=== PATIENT | male | born 1955 | race Caucasian/White ===

== ENCOUNTER 2023-04-22 13:26 | Inpatient (IN) | payer OTHER, MEDICARE ==
[~2023-04-22] VITALS: Ht 179.1 cm; Wt 78.9 kg
[2023-04-22 13:59] LABS: BASOPHILS % (AUTO) 0.7 % (0.0-2.0); EOSINOPHILS # (AUTO) 0.1 K/uL (0.0-0.7); HEMATOCRIT 39.2 % (36.7-47.1); HEMOGLOBIN 13.2 g/dL (12.5-16.3); LYMPHOCYTES # (AUTO) 0.4 K/uL (0.8-4.8); LYMPHOCYTES % (AUTO) 6.5 % (20.5-51.5); MEAN CORPUSCULAR HEMOGLOBIN 32.1 uug (23.8-33.4); MEAN CORPUSCULAR HGB CONC 34 g/dL (32.5-36.3); MEAN CORPUSCULAR VOLUME 95.4 fL (73.0-96.2); MONOCYTES # (AUTO) 0.7 K/uL (0.1-1.30); NEUTROPHILS # (AUTO) 4.3 K/uL (1.8-8.9); NEUTROPHILS % (AUTO) 78.8 % (38.5-71.5); PLATELET COUNT (AUTO) 147 K/uL (152-348); RED BLOOD CELL COUNT(AUTO) 4.11 MIL/uL (4.06-5.63); RED CELL DISTRIBUTION WIDTH 15.9 % (12.1-16.2); WHITE BLOOD COUNT (AUTO) 5.5 K/uL (3.6-10.2)
[2023-04-22 14:08] LABS: DIFFERENTIAL COMMENT 1
[2023-04-22] MEDS ORDERED: DILTIAZEM HCL 25 MG IV IV ONE (14:30)
[2023-04-22] MEDS ORDERED: DILTIAZEM HCL 50 MG IV ONE (14:41)
[2023-04-22] MEDS ORDERED: DILTIAZEM HCL IV 125 MG in IV NORMAL SALINE 100 ML IV PRN (16:15)
[2023-04-22 16:32] LABS: ALBUMIN 3.4 g/dL (3.4-5.0); BILIRUBIN,TOTAL 0.5 mg/dL (0.2-1.0); POTASSIUM 4.9 mmol/L (3.5-5.1); TOTAL PROTEIN, SERUM 6.9 g/dL (6.4-8.2)
[2023-04-22 16:44] LABS: CREATININE 7.9 mg/dL (0.6-1.3)
[2023-04-22 16:56] LABS: CALCIUM 8.8 mg/dL (8.5-10.1)
[2023-04-22] MEDS ORDERED: AMIODARONE HCL IV 150 MG in IV DEXTROSE 5% 100 ML IV ONE (18:30)
[2023-04-22] MEDS: AMIODARONE HCL IV 450 MG in IV DEXTROSE 5% 250 ML IV PRN (19:23)
[2023-04-22] MEDS ORDERED: MORPHINE SULFATE 2 MG/1 ML DISP.SYRIN IV PRN (22:15)
[2023-04-22] MEDS ORDERED: ZOLPIDEM 5 MG TABLET PO PRN (22:15)
[2023-04-22] MEDS ORDERED: MAGNESIUM HYDROXIDE 30 ML LIQUID UDC PO PRN (22:15)
[2023-04-22] MEDS ORDERED: ONDANSETRON 4 MG/2 ML VIAL IV PRN (22:15)
[2023-04-22] MEDS ORDERED: HYDROCODONE/APAP 5-325MG TABLET PO PRN (22:15)
[2023-04-22] MEDS ORDERED: REMEDY ESSENTIAL ZINC PASTE 113 GM TP PRN (22:15)
[2023-04-22 23:15] VITALS: BP 142/105; TEMP 98.3; O2SAT 97
[2023-04-22] MEDS ORDERED: AMIODARONE HCL 150 MG/3 ML VIAL IV ONE (23:42)
[2023-04-23] VITALS (30 sets, daily range): BP systolic 116–161; BP diastolic 81–104; TEMP 98–99.5; O2SAT 91–98
[2023-04-23] MEDS: ACETAMINOPHEN 325 MG TABLET PO PRN ×2 (00:25→18:45)
[2023-04-23] MEDS: AMIODARONE HCL IV 450 MG in IV DEXTROSE 5% 250 ML IV PRN ×2 (01:18→14:15)
[2023-04-23 05:25] LABS: BASOPHILS % (AUTO) 1.2 % (0.0-2.0); HEMATOCRIT 35.8 % (36.7-47.1); HEMOGLOBIN 12.3 g/dL (12.5-16.3); LYMPHOCYTES # (AUTO) 0.5 K/uL (0.8-4.8); LYMPHOCYTES % (AUTO) 12.6 % (20.5-51.5); MEAN CORPUSCULAR HEMOGLOBIN 32.2 uug (23.8-33.4); MEAN CORPUSCULAR HGB CONC 34 g/dL (32.5-36.3); MONOCYTES # (AUTO) 0.4 K/uL (0.1-1.30); MONOCYTES % (AUTO) 10.1 % (0.0-11.0); NEUTROPHILS # (AUTO) 3.1 K/uL (1.8-8.9); NEUTROPHILS % (AUTO) 75.1 % (38.5-71.5); PLATELET COUNT (AUTO) 131 K/uL (152-348); RED BLOOD CELL COUNT(AUTO) 3.81 MIL/uL (4.06-5.63); RED CELL DISTRIBUTION WIDTH 15.7 % (12.1-16.2); WHITE BLOOD COUNT (AUTO) 4.1 K/uL (3.6-10.2)
[2023-04-23 05:39] LABS: DIFFERENTIAL COMMENT 1
[2023-04-23 05:54] LABS: CALCIUM 9.1 mg/dL (8.5-10.1); MAGNESIUM 2.7 mg/dL (1.8-2.4); PHOSPHOROUS 3.8 mg/dL (2.5-4.9); POTASSIUM 4.6 mmol/L (3.5-5.1)
[2023-04-23 06:02] LABS: CREATININE 9.3 mg/dL (0.6-1.3)
[2023-04-23 06:09] LABS: THYROID STIMULATING HORMONE 3.834 mIU/mL (0.358-3.740)
[2023-04-23] MEDS: PANTOPRAZOLE SODIUM 40 MG TABLET.DR PO SCH (06:15)
[2023-04-23] MEDS ORDERED: ACET325T53 PO (10:29)
[2023-04-23] MEDS ORDERED: FLUT1DIS28 IH (10:30)
[2023-04-23] MEDS ORDERED: CALC-494 PO (10:31)
[2023-04-23] MEDS ORDERED: DILT-32 PO (10:31)
[2023-04-23] MEDS ORDERED: DOCU100C36 PO (10:32)
[2023-04-23] MEDS ORDERED: FERR-68 PO (10:34)
[2023-04-23] MEDS ORDERED: HYDR-4077 PO (10:34)
[2023-04-23] MEDS ORDERED: APIX5TAB PO (10:34)
[2023-04-23] MEDS ORDERED: SODI10PO PO (10:37)
[2023-04-23] MEDS ORDERED: MIDO10TA PO ×2 (10:38→10:39)
[2023-04-23] MEDS ORDERED: PANT40TA2 PO (10:43)
[2023-04-23] MEDS ORDERED: VIT1TABL46 PO (10:43)
[2023-04-23] MEDS ORDERED: CALC0.258 PO (10:43)
[2023-04-23] MEDS ORDERED: OLAN15TA3 PO (10:43)
[2023-04-23] MEDS ORDERED: SEVE800T8 PO (10:43)
[2023-04-23] MEDS ORDERED: SIMV10TA98 PO (10:43)
[2023-04-23] MEDS ORDERED: SODI650T PO (10:46)
[2023-04-23] MEDS ORDERED: SUCR1TAB PO (10:47)
[2023-04-23] MEDS ORDERED: ALBU18HF2 IH (10:52)
[2023-04-23] MEDS ORDERED: ONDA4TAB5 PO (10:52)
[2023-04-23] MEDS ORDERED: CHOLECALCIFEROL PO (10:52)
[2023-04-23] MEDS ORDERED: ZINC220C6 PO (10:52)
[2023-04-23] MEDS ORDERED: ONDANSETRON HCL 4 MG TABLET PO PRN (11:00)
[2023-04-23] MEDS ORDERED: MIDODRINE HCL 5 MG TABLET PO PRN (11:00)
[2023-04-23] MEDS ORDERED: ALBUTEROL SULFATE 8 GM HFA.AER.AD IH PRN (11:00)
[2023-04-23] MEDS ORDERED: CALCIUM CARBONATE 500 MG TAB.CHEW PO PRN (11:00)
[2023-04-23] MEDS: hydrALAZINE HCL 50 MG TABLET PO PRN (12:22)
[2023-04-23] MEDS: MIDODRINE HCL 5 MG TABLET PO SCH ×2 (12:24→17:00)
[2023-04-23] MEDS: SEVELAMER CARBONATE 800 MG TABLET PO SCH ×2 (12:42→18:40)
[2023-04-23] MEDS: SODIUM BICARBONATE 650 MG TABLET PO SCH ×2 (12:43→18:41)
[2023-04-23] MEDS ORDERED: FLUTICASONE/SALMETEROL 250/50 INHALER IH SCH (17:00)
[2023-04-23] MEDS: NEPRO (VANILLA) 237 ML CAN PO SCH (17:00)
[2023-04-23] MEDS: DOCUSATE SODIUM 100 MG CAPSULE PO SCH (18:36)
[2023-04-23] MEDS: APIXABAN 5 MG TABLET PO SCH (18:38)
[2023-04-23] MEDS: SIMVASTATIN 10 MG TABLET PO SCH (20:47)
[2023-04-23] MEDS: OLANZAPINE 5 MG TABLET PO SCH (20:47)
[2023-04-24] VITALS (29 sets, daily range): BP systolic 119–188; BP diastolic 52–133; TEMP 98.9–99; O2SAT 93–98
[2023-04-24] MEDS: hydrALAZINE HCL 50 MG TABLET PO PRN ×3 (01:51→23:20)
[2023-04-24] MEDS ORDERED: AMIODARONE HCL 150 MG/3 ML VIAL IV ONE (03:05)
[2023-04-24] MEDS: AMIODARONE HCL IV 450 MG in IV DEXTROSE 5% 250 ML IV PRN (03:15)
[2023-04-24 05:10] LABS: BASOPHILS % (AUTO) 0.1 % (0.0-2.0); EOSINOPHILS % (AUTO) 0.1 % (0.0-7.0); HEMOGLOBIN 13.3 g/dL (12.5-16.3); LYMPHOCYTES # (AUTO) 0.2 K/uL (0.8-4.8); LYMPHOCYTES % (AUTO) 3.4 % (20.5-51.5); MEAN CORPUSCULAR HEMOGLOBIN 32.1 uug (23.8-33.4); MEAN CORPUSCULAR HGB CONC 34 g/dL (32.5-36.3); MEAN CORPUSCULAR VOLUME 94.1 fL (73.0-96.2); MONOCYTES # (AUTO) 0.5 K/uL (0.1-1.30); MONOCYTES % (AUTO) 9.2 % (0.0-11.0); NEUTROPHILS % (AUTO) 87.2 % (38.5-71.5); PLATELET COUNT (AUTO) 125 K/uL (152-348); RED BLOOD CELL COUNT(AUTO) 4.15 MIL/uL (4.06-5.63); RED CELL DISTRIBUTION WIDTH 15.8 % (12.1-16.2); WHITE BLOOD COUNT (AUTO) 5.7 K/uL (3.6-10.2)
[2023-04-24 05:54] LABS: DIFFERENTIAL COMMENT 1
[2023-04-24] MEDS: SUCRALFATE 1 G TABLET PO SCH (06:08)
[2023-04-24] MEDS: PANTOPRAZOLE SODIUM 40 MG TABLET.DR PO SCH (06:09)
[2023-04-24 06:27] LABS: CALCIUM 9.3 mg/dL (8.5-10.1); CREATININE 6.3 mg/dL (0.6-1.3); MAGNESIUM 2.4 mg/dL (1.8-2.4); PHOSPHOROUS 3.4 mg/dL (2.5-4.9); POTASSIUM 4.7 mmol/L (3.5-5.1)
[2023-04-24] MEDS ORDERED: MIDODRINE HCL 5 MG TABLET PO PRN (07:45)
[2023-04-24] MEDS: SODIUM BICARBONATE 650 MG TABLET PO SCH ×3 (08:00→18:00)
[2023-04-24] MEDS: SEVELAMER CARBONATE 800 MG TABLET PO SCH ×3 (08:00→17:05)
[2023-04-24] MEDS ORDERED: DILTIAZEM HCL 25 MG IV IV ONE ×2 (08:45→11:45)
[2023-04-24] MEDS ORDERED: PANTOPRAZOLE SODIUM 40 MG TABLET.DR PO SCH (09:00)
[2023-04-24] MEDS ORDERED: SODIUM ZIRCONIUM CYCLOSILICATE PO SCH (09:00)
[2023-04-24] MEDS ORDERED: DILTIAZEM HCL CD 120 MG CAP.SR.24H PO SCH ×2 (09:00)
[2023-04-24] MEDS: FLUTICASONE/VILANTEROL 1 EACH BLST.W.DEV INH SCH (09:00)
[2023-04-24] MEDS: ZINC SULFATE 220 MG CAPSULE PO SCH (09:02)
[2023-04-24] MEDS: FERROUS SULFATE 325 MG TABEC PO SCH (09:03)
[2023-04-24] MEDS: CHOLECALCIFEROL 1,000 UNIT TABLET PO SCH (09:04)
[2023-04-24] MEDS: CALCIUM CARBONATE 500 MG TAB.CHEW PO PRN (09:04)
[2023-04-24] MEDS: APIXABAN 5 MG TABLET PO SCH ×2 (09:27→17:34)
[2023-04-24] MEDS: DILTIAZEM HCL CD 240 MG CAP.SR.24H PO SCH (09:30)
[2023-04-24] MEDS: CALCITRIOL 0.25 MCG CAPSULE PO SCH (09:30)
[2023-04-24] MEDS: DOCUSATE SODIUM 100 MG CAPSULE PO SCH ×2 (09:30→17:05)
[2023-04-24] MEDS: NEPRO (VANILLA) 237 ML CAN PO SCH ×2 (09:30→17:05)
[2023-04-24] MEDS: FOLIC ACID/VITAMIN B COMP W-C TABLET PO SCH (09:30)
[2023-04-24 15:55] LABS: THYROID STIMULATING HORMONE 2.802 mIU/mL (0.358-3.740)
[2023-04-24] MEDS: SIMVASTATIN 10 MG TABLET PO SCH (20:54)
[2023-04-24] MEDS: OLANZAPINE 5 MG TABLET PO SCH (20:55)
[2023-04-25] VITALS (26 sets, daily range): BP systolic 114–156; BP diastolic 68–104; TEMP 98.1–99.2; O2SAT 91–96
[2023-04-25] MEDS ORDERED: DILTIAZEM HCL 25 MG IV IV ONE (02:30)
[2023-04-25 05:35] LABS: BASOPHILS % (AUTO) 0.4 % (0.0-2.0); HEMATOCRIT 42.4 % (36.7-47.1); LYMPHOCYTES # (AUTO) 0.2 K/uL (0.8-4.8); MEAN CORPUSCULAR HGB CONC 33 g/dL (32.5-36.3); MEAN CORPUSCULAR VOLUME 96.6 fL (73.0-96.2); MONOCYTES # (AUTO) 0.7 K/uL (0.1-1.30); MONOCYTES % (AUTO) 11.5 % (0.0-11.0); NEUTROPHILS % (AUTO) 85.1 % (38.5-71.5); PLATELET COUNT (AUTO) 129 K/uL (152-348); RED BLOOD CELL COUNT(AUTO) 4.39 MIL/uL (4.06-5.63); RED CELL DISTRIBUTION WIDTH 16.1 % (12.1-16.2); WHITE BLOOD COUNT (AUTO) 5.8 K/uL (3.6-10.2)
[2023-04-25 05:41] LABS: DIFFERENTIAL COMMENT 1
[2023-04-25 05:49] LABS: CALCIUM 9.8 mg/dL (8.5-10.1); CREATININE 5.3 mg/dL (0.6-1.3); MAGNESIUM 2.4 mg/dL (1.8-2.4); PHOSPHOROUS 4.1 mg/dL (2.5-4.9)
[2023-04-25] MEDS: PANTOPRAZOLE SODIUM 40 MG TABLET.DR PO SCH (07:43)
[2023-04-25] MEDS: SUCRALFATE 1 G TABLET PO SCH (07:43)
[2023-04-25] MEDS: CALCIUM CARBONATE 500 MG TAB.CHEW PO PRN (08:00)
[2023-04-25] MEDS: SEVELAMER CARBONATE 800 MG TABLET PO SCH ×3 (08:00→17:53)
[2023-04-25] MEDS: DOCUSATE SODIUM 100 MG CAPSULE PO SCH ×2 (08:01→17:55)
[2023-04-25] MEDS: CALCITRIOL 0.25 MCG CAPSULE PO SCH (08:01)
[2023-04-25] MEDS: SODIUM BICARBONATE 650 MG TABLET PO SCH ×3 (08:01→17:54)
[2023-04-25] MEDS: FLUTICASONE/VILANTEROL 1 EACH BLST.W.DEV INH SCH (08:02)
[2023-04-25] MEDS: CHOLECALCIFEROL 1,000 UNIT TABLET PO SCH (08:02)
[2023-04-25] MEDS: ZINC SULFATE 220 MG CAPSULE PO SCH (08:03)
[2023-04-25] MEDS: FOLIC ACID/VITAMIN B COMP W-C TABLET PO SCH (08:04)
[2023-04-25] MEDS: FERROUS SULFATE 325 MG TABEC PO SCH (08:04)
[2023-04-25] MEDS: DILTIAZEM HCL CD 240 MG CAP.SR.24H PO SCH (08:06)
[2023-04-25] MEDS: APIXABAN 5 MG TABLET PO SCH ×2 (08:07→17:56)
[2023-04-25] MEDS: NEPRO (VANILLA) 237 ML CAN PO SCH ×2 (08:08→17:53)
[2023-04-25] MEDS ORDERED: DILTIAZEM HCL CD 120 MG CAP.SR.24H PO ONE (09:00)
[2023-04-25] MEDS: METOPROLOL TARTRATE 50 MG TABLET PO SCH ×2 (09:21→17:57)
[2023-04-25 10:28] LABS: ABG BASE EXCESS -0.9 mmol/L (-2.0-2.0); ABG HCO3 22.8 mmol/L (22.0-26.0); ABG PH 7.432 (7.340-7.440); ABG SITE RIGHT RADIAL; ABG TOTAL HEMOGLOBIN 13.8 G/dL (14.0-18.0); AaDO2 90.3 mmHg; COHb 1.4 % (0.0-3.9); MetHb 0.2 % (0.0-1.5); O2Hb 87.6 % (94.0-97.0)
[2023-04-25] MEDS: ALBUTEROL SULFATE 2.5 MG/3 ML NEBU NEB PRN (10:58)
[2023-04-25] MEDS: methylPREDNISolone SOD SUCC 125 MG/2 ML VIAL IV SCH ×3 (11:12→21:46)
[2023-04-25] MEDS: SIMVASTATIN 10 MG TABLET PO SCH (20:31)
[2023-04-25] MEDS: OLANZAPINE 5 MG TABLET PO SCH (20:31)
[2023-04-26] VITALS (9 sets, daily range): BP systolic 105–142; BP diastolic 55–84; TEMP 98–98.5; O2SAT 90–97
[2023-04-26] MEDS: METOPROLOL TARTRATE 50 MG TABLET PO SCH ×3 (01:13→16:51)
[2023-04-26] MEDS: methylPREDNISolone SOD SUCC 125 MG/2 ML VIAL IV SCH ×3 (05:40→22:31)
[2023-04-26] MEDS: PANTOPRAZOLE SODIUM 40 MG TABLET.DR PO SCH (05:41)
[2023-04-26] MEDS: SUCRALFATE 1 G TABLET PO SCH (05:43)
[2023-04-26 06:40] LABS: BASOPHILS % (AUTO) 0.1 % (0.0-2.0); HEMATOCRIT 36.5 % (36.7-47.1); HEMOGLOBIN 12.3 g/dL (12.5-16.3); LYMPHOCYTES # (AUTO) 0.3 K/uL (0.8-4.8); LYMPHOCYTES % (AUTO) 4.4 % (20.5-51.5); MEAN CORPUSCULAR HEMOGLOBIN 32.2 uug (23.8-33.4); MEAN CORPUSCULAR HGB CONC 34 g/dL (32.5-36.3); MEAN CORPUSCULAR VOLUME 95.2 fL (73.0-96.2); MONOCYTES # (AUTO) 0.5 K/uL (0.1-1.30); MONOCYTES % (AUTO) 9.4 % (0.0-11.0); NEUTROPHILS % (AUTO) 86.1 % (38.5-71.5); PLATELET COUNT (AUTO) 144 K/uL (152-348); RED BLOOD CELL COUNT(AUTO) 3.83 MIL/uL (4.06-5.63); RED CELL DISTRIBUTION WIDTH 16.1 % (12.1-16.2); WHITE BLOOD COUNT (AUTO) 5.8 K/uL (3.6-10.2)
[2023-04-26 06:53] LABS: DIFFERENTIAL COMMENT 1
[2023-04-26] MEDS: SEVELAMER CARBONATE 800 MG TABLET PO SCH ×3 (08:11→16:51)
[2023-04-26 08:14] LABS: POTASSIUM 5.6 mmol/L (3.5-5.1)
[2023-04-26 08:15] LABS: MAGNESIUM 2.8 mg/dL (1.8-2.4); PHOSPHOROUS 4.3 mg/dL (2.5-4.9)
[2023-04-26 08:17] LABS: CREATININE 7.8 mg/dL (0.6-1.3)
[2023-04-26] MEDS: NEPRO (VANILLA) 237 ML CAN PO SCH ×2 (09:00→16:57)
[2023-04-26] MEDS: SODIUM BICARBONATE 650 MG TABLET PO SCH ×3 (09:14→17:04)
[2023-04-26] MEDS: FOLIC ACID/VITAMIN B COMP W-C TABLET PO SCH (09:17)
[2023-04-26] MEDS: APIXABAN 5 MG TABLET PO SCH ×2 (09:17→16:55)
[2023-04-26] MEDS: CHOLECALCIFEROL 1,000 UNIT TABLET PO SCH (09:18)
[2023-04-26] MEDS: FERROUS SULFATE 325 MG TABEC PO SCH (09:19)
[2023-04-26] MEDS: FLUTICASONE/VILANTEROL 1 EACH BLST.W.DEV INH SCH (09:20)
[2023-04-26] MEDS: DILTIAZEM HCL CD 180 MG CAP.SR.24H PO SCH (09:20)
[2023-04-26] MEDS: DOCUSATE SODIUM 100 MG CAPSULE PO SCH ×2 (09:20→16:51)
[2023-04-26] MEDS: ZINC SULFATE 220 MG CAPSULE PO SCH (09:21)
[2023-04-26] MEDS: CALCITRIOL 0.25 MCG CAPSULE PO SCH (09:22)
[2023-04-26] MEDS: ALBUTEROL SULFATE 2.5 MG/3 ML NEBU NEB PRN ×2 (16:19→21:25)
[2023-04-26] MEDS: SIMVASTATIN 10 MG TABLET PO SCH (22:27)
[2023-04-26] MEDS: OLANZAPINE 5 MG TABLET PO SCH (22:27)
[2023-04-26] MEDS: AMMONIUM LACTATE 12% LOTION 225 GM BOTTLE TP SCH (22:31)
[2023-04-27 00:12] VITALS: BP 122/67; TEMP 98.5; O2SAT 90
[2023-04-27] MEDS: METOPROLOL TARTRATE 50 MG TABLET PO SCH ×3 (01:00→18:08)
[2023-04-27 04:30] VITALS: BP 114/57; TEMP 98.6; O2SAT 97
[2023-04-27 06:32] LABS: BASOPHILS % (AUTO) 0.2 % (0.0-2.0); HEMATOCRIT 34.9 % (36.7-47.1); HEMOGLOBIN 11.8 g/dL (12.5-16.3); LYMPHOCYTES # (AUTO) 0.3 K/uL (0.8-4.8); LYMPHOCYTES % (AUTO) 5.2 % (20.5-51.5); MEAN CORPUSCULAR HGB CONC 34 g/dL (32.5-36.3); MONOCYTES # (AUTO) 0.4 K/uL (0.1-1.30); MONOCYTES % (AUTO) 8.4 % (0.0-11.0); NEUTROPHILS # (AUTO) 4.3 K/uL (1.8-8.9); NEUTROPHILS % (AUTO) 86.2 % (38.5-71.5); PLATELET COUNT (AUTO) 164 K/uL (152-348); RED BLOOD CELL COUNT(AUTO) 3.68 MIL/uL (4.06-5.63); RED CELL DISTRIBUTION WIDTH 16.1 % (12.1-16.2)
[2023-04-27 06:53] LABS: CALCIUM 9.6 mg/dL (8.5-10.1); MAGNESIUM 2.9 mg/dL (1.8-2.4); PHOSPHOROUS 4.1 mg/dL (2.5-4.9); POTASSIUM 5.8 mmol/L (3.5-5.1)
[2023-04-27 07:06] LABS: CREATININE 9.5 mg/dL (0.6-1.3)
[2023-04-27] MEDS: methylPREDNISolone SOD SUCC 125 MG/2 ML VIAL IV SCH ×3 (07:06→21:40)
[2023-04-27] MEDS: PANTOPRAZOLE SODIUM 40 MG TABLET.DR PO SCH (07:06)
[2023-04-27] MEDS: SUCRALFATE 1 G TABLET PO SCH (07:07)
[2023-04-27 07:28] LABS: DIFFERENTIAL COMMENT 1
[2023-04-27] MEDS: CALCITRIOL 0.25 MCG CAPSULE PO SCH (08:48)
[2023-04-27] MEDS: SEVELAMER CARBONATE 800 MG TABLET PO SCH ×3 (08:48→18:07)
[2023-04-27] MEDS: SODIUM BICARBONATE 650 MG TABLET PO SCH ×3 (08:50→18:10)
[2023-04-27] MEDS: FLUTICASONE/VILANTEROL 1 EACH BLST.W.DEV INH SCH (08:50)
[2023-04-27] MEDS: DILTIAZEM HCL CD 180 MG CAP.SR.24H PO SCH (08:51)
[2023-04-27] MEDS: CHOLECALCIFEROL 1,000 UNIT TABLET PO SCH (08:52)
[2023-04-27] MEDS: FOLIC ACID/VITAMIN B COMP W-C TABLET PO SCH (08:53)
[2023-04-27] MEDS: NEPRO (VANILLA) 237 ML CAN PO SCH ×2 (08:55→17:00)
[2023-04-27] MEDS: FERROUS SULFATE 325 MG TABEC PO SCH (08:55)
[2023-04-27] MEDS: ZINC SULFATE 220 MG CAPSULE PO SCH (08:55)
[2023-04-27] MEDS: DOCUSATE SODIUM 100 MG CAPSULE PO SCH ×2 (08:56→18:07)
[2023-04-27] MEDS: APIXABAN 5 MG TABLET PO SCH ×2 (08:57→18:09)
[2023-04-27 12:46] VITALS: BP 152/50; TEMP 98.6; O2SAT 93
[2023-04-27 18:35] VITALS: O2SAT 96
[2023-04-27 20:00] VITALS: BP 130/63; TEMP 97.8; O2SAT 92
[2023-04-27] MEDS: AMMONIUM LACTATE 12% LOTION 225 GM BOTTLE TP SCH (21:38)
[2023-04-27] MEDS: OLANZAPINE 5 MG TABLET PO SCH (21:38)
[2023-04-27] MEDS: SIMVASTATIN 10 MG TABLET PO SCH (21:38)
[2023-04-28] VITALS: BP 121/65; TEMP 98.5; O2SAT 92
[2023-04-28] MEDS: METOPROLOL TARTRATE 50 MG TABLET PO SCH ×3 (01:10→17:00)
[2023-04-28 04:00] VITALS: BP 124/69; TEMP 97.8; O2SAT 92
[2023-04-28] MEDS: methylPREDNISolone SOD SUCC 125 MG/2 ML VIAL IV SCH ×2 (06:40→13:58)
[2023-04-28] MEDS: SUCRALFATE 1 G TABLET PO SCH (06:40)
[2023-04-28] MEDS: PANTOPRAZOLE SODIUM 40 MG TABLET.DR PO SCH (06:41)
[2023-04-28 06:56] LABS: BASOPHILS % (AUTO) 0.1 % (0.0-2.0); HEMATOCRIT 37.7 % (36.7-47.1); HEMOGLOBIN 12.3 g/dL (12.5-16.3); LYMPHOCYTES # (AUTO) 0.2 K/uL (0.8-4.8); LYMPHOCYTES % (AUTO) 3.9 % (20.5-51.5); MEAN CORPUSCULAR HGB CONC 33 g/dL (32.5-36.3); MEAN CORPUSCULAR VOLUME 94.9 fL (73.0-96.2); MONOCYTES # (AUTO) 0.4 K/uL (0.1-1.30); MONOCYTES % (AUTO) 7.9 % (0.0-11.0); NEUTROPHILS # (AUTO) 4.3 K/uL (1.8-8.9); NEUTROPHILS % (AUTO) 88.1 % (38.5-71.5); PLATELET COUNT (AUTO) 200 K/uL (152-348); RED BLOOD CELL COUNT(AUTO) 3.98 MIL/uL (4.06-5.63); RED CELL DISTRIBUTION WIDTH 15.8 % (12.1-16.2); WHITE BLOOD COUNT (AUTO) 4.8 K/uL (3.6-10.2)
[2023-04-28 07:11] LABS: MAGNESIUM 2.7 mg/dL (1.8-2.4)
[2023-04-28 07:22] LABS: DIFFERENTIAL COMMENT 1
[2023-04-28 07:24] LABS: ALBUMIN 2.7 g/dL (3.4-5.0); BILIRUBIN,TOTAL 0.4 mg/dL (0.2-1.0); CALCIUM 9.5 mg/dL (8.5-10.1); POTASSIUM 5.4 mmol/L (3.5-5.1); TOTAL PROTEIN, SERUM 6.9 g/dL (6.4-8.2)
[2023-04-28 07:31] LABS: CREATININE 8.3 mg/dL (0.6-1.3)
[2023-04-28] MEDS: SEVELAMER CARBONATE 800 MG TABLET PO SCH ×3 (08:06→17:37)
[2023-04-28] MEDS: FOLIC ACID/VITAMIN B COMP W-C TABLET PO SCH (08:49)
[2023-04-28] MEDS: DOCUSATE SODIUM 100 MG CAPSULE PO SCH ×2 (08:49→17:37)
[2023-04-28] MEDS: CHOLECALCIFEROL 1,000 UNIT TABLET PO SCH (08:49)
[2023-04-28] MEDS: ZINC SULFATE 220 MG CAPSULE PO SCH (08:49)
[2023-04-28] MEDS: FERROUS SULFATE 325 MG TABEC PO SCH (08:49)
[2023-04-28] MEDS: DILTIAZEM HCL CD 180 MG CAP.SR.24H PO SCH (08:49)
[2023-04-28] MEDS: FLUTICASONE/VILANTEROL 1 EACH BLST.W.DEV INH SCH (08:50)
[2023-04-28] MEDS: SODIUM BICARBONATE 650 MG TABLET PO SCH ×3 (08:59→17:37)
[2023-04-28] MEDS: NEPRO (VANILLA) 237 ML CAN PO SCH ×2 (09:00→17:38)
[2023-04-28] MEDS: APIXABAN 5 MG TABLET PO SCH ×2 (09:00→17:39)
[2023-04-28] MEDS: CALCITRIOL 0.25 MCG CAPSULE PO SCH (09:02)
[2023-04-28 15:42] VITALS: BP 113/50; TEMP 97.6; O2SAT 97
[2023-04-28 17:22] VITALS: O2SAT 96
[2023-04-28 20:00] VITALS: BP 114/63; TEMP 97.8; O2SAT 91
[2023-04-28] MEDS: AMMONIUM LACTATE 12% LOTION 225 GM BOTTLE TP SCH (20:33)
[2023-04-28] MEDS: SIMVASTATIN 10 MG TABLET PO SCH (20:50)
[2023-04-28] MEDS: OLANZAPINE 5 MG TABLET PO SCH (20:50)
[2023-04-29] VITALS: BP 132/73; TEMP 97.7; O2SAT 98
[2023-04-29] MEDS: methylPREDNISolone SOD SUCC 40 MG/ML VIAL IV SCH ×4 (01:44→21:26)
[2023-04-29] MEDS: METOPROLOL TARTRATE 50 MG TABLET PO SCH ×3 (01:45→17:15)
[2023-04-29 04:00] VITALS: BP 158/74; TEMP 97.8; O2SAT 94
[2023-04-29] MEDS: PANTOPRAZOLE SODIUM 40 MG TABLET.DR PO SCH (06:08)
[2023-04-29 07:24] LABS: BASOPHILS % (AUTO) 0.1 % (0.0-2.0); HEMATOCRIT 40.7 % (36.7-47.1); HEMOGLOBIN 13.5 g/dL (12.5-16.3); LYMPHOCYTES # (AUTO) 0.2 K/uL (0.8-4.8); LYMPHOCYTES % (AUTO) 1.9 % (20.5-51.5); MEAN CORPUSCULAR HEMOGLOBIN 31.7 uug (23.8-33.4); MEAN CORPUSCULAR HGB CONC 33 g/dL (32.5-36.3); MEAN CORPUSCULAR VOLUME 95.4 fL (73.0-96.2); MONOCYTES # (AUTO) 0.5 K/uL (0.1-1.30); MONOCYTES % (AUTO) 5.7 % (0.0-11.0); NEUTROPHILS # (AUTO) 7.5 K/uL (1.8-8.9); NEUTROPHILS % (AUTO) 92.3 % (38.5-71.5); PLATELET COUNT (AUTO) 230 K/uL (152-348); RED BLOOD CELL COUNT(AUTO) 4.27 MIL/uL (4.06-5.63); RED CELL DISTRIBUTION WIDTH 15.9 % (12.1-16.2); WHITE BLOOD COUNT (AUTO) 8.1 K/uL (3.6-10.2)
[2023-04-29 07:29] LABS: DIFFERENTIAL COMMENT 1
[2023-04-29 07:36] LABS: ABG BASE EXCESS 0.9 mmol/L (-2.0-2.0); ABG HCO3 25.3 mmol/L (22.0-26.0); ABG PCO2 39.8 mmHg (35.0-48.0); ABG PH 7.421 (7.340-7.440); ABG PO2 63.6 mmHg (75.0-100.0); ABG TOTAL HEMOGLOBIN 14.1 G/dL (14.0-18.0); AaDO2 92.8 mmHg; MetHb 0.1 % (0.0-1.5); O2Hb 89.8 % (94.0-97.0)
[2023-04-29 07:50] LABS: ALBUMIN 2.6 g/dL (3.4-5.0); BILIRUBIN,TOTAL 0.4 mg/dL (0.2-1.0); CALCIUM 9.5 mg/dL (8.5-10.1); CREATININE 6.9 mg/dL (0.6-1.3); POTASSIUM 5.2 mmol/L (3.5-5.1)
[2023-04-29 08:21] LABS: MAGNESIUM 2.5 mg/dL (1.8-2.4); PHOSPHOROUS 4.3 mg/dL (2.5-4.9)
[2023-04-29] MEDS: FOLIC ACID/VITAMIN B COMP W-C TABLET PO SCH (08:44)
[2023-04-29] MEDS: SEVELAMER CARBONATE 800 MG TABLET PO SCH ×3 (08:44→17:13)
[2023-04-29] MEDS: DOCUSATE SODIUM 100 MG CAPSULE PO SCH ×2 (08:45→17:13)
[2023-04-29] MEDS ORDERED: SODIUM POLYSTYRENE SULFONATE 15 G/60 ML LIQUID UDC PO ONE (09:00)
[2023-04-29] MEDS: DILTIAZEM HCL CD 180 MG CAP.SR.24H PO SCH (09:08)
[2023-04-29] MEDS: NEPRO (VANILLA) 237 ML CAN PO SCH ×2 (09:09→17:15)
[2023-04-29] MEDS: ZINC SULFATE 220 MG CAPSULE PO SCH (09:12)
[2023-04-29] MEDS: CALCITRIOL 0.25 MCG CAPSULE PO SCH (09:12)
[2023-04-29] MEDS: SODIUM BICARBONATE 650 MG TABLET PO SCH ×3 (09:13→17:13)
[2023-04-29] MEDS: FLUTICASONE/VILANTEROL 1 EACH BLST.W.DEV INH SCH (11:23)
[2023-04-29] MEDS: APIXABAN 5 MG TABLET PO SCH ×2 (11:24→21:27)
[2023-04-29 12:02] VITALS: BP 135/83; TEMP 98.6; O2SAT 97
[2023-04-29 16:00] VITALS: BP 132/78; TEMP 97.7; O2SAT 93
[2023-04-29 20:00] VITALS: BP 134/62; TEMP 97.8; O2SAT 90
[2023-04-29] MEDS: OLANZAPINE 5 MG TABLET PO SCH (21:25)
[2023-04-29] MEDS: AMMONIUM LACTATE 12% LOTION 225 GM BOTTLE TP SCH (21:26)
[2023-04-30] VITALS (11 sets, daily range): BP systolic 122–145; BP diastolic 65–94; TEMP 97.3–98.5; O2SAT 82–95
[2023-04-30] MEDS: METOPROLOL TARTRATE 50 MG TABLET PO SCH ×3 (01:04→17:29)
[2023-04-30] MEDS: methylPREDNISolone SOD SUCC 40 MG/ML VIAL IV SCH ×3 (05:20→22:13)
[2023-04-30] MEDS: PANTOPRAZOLE SODIUM 40 MG TABLET.DR PO SCH (06:13)
[2023-04-30 06:15] LABS: BASOPHILS % (AUTO) 0.4 % (0.0-2.0); HEMATOCRIT 39.8 % (36.7-47.1); HEMOGLOBIN 13.2 g/dL (12.5-16.3); LYMPHOCYTES # (AUTO) 0.1 K/uL (0.8-4.8); LYMPHOCYTES % (AUTO) 1.3 % (20.5-51.5); MEAN CORPUSCULAR HEMOGLOBIN 31.6 uug (23.8-33.4); MEAN CORPUSCULAR HGB CONC 33 g/dL (32.5-36.3); MEAN CORPUSCULAR VOLUME 95.4 fL (73.0-96.2); MONOCYTES # (AUTO) 0.4 K/uL (0.1-1.30); MONOCYTES % (AUTO) 3.5 % (0.0-11.0); NEUTROPHILS # (AUTO) 9.9 K/uL (1.8-8.9); NEUTROPHILS % (AUTO) 94.8 % (38.5-71.5); PLATELET COUNT (AUTO) 222 K/uL (152-348); RED BLOOD CELL COUNT(AUTO) 4.18 MIL/uL (4.06-5.63); WHITE BLOOD COUNT (AUTO) 10.5 K/uL (3.6-10.2)
[2023-04-30 06:17] LABS: DIFFERENTIAL COMMENT 1
[2023-04-30 06:24] LABS: ALBUMIN 2.3 g/dL (3.4-5.0); BILIRUBIN,TOTAL 0.5 mg/dL (0.2-1.0); CALCIUM 9.2 mg/dL (8.5-10.1); POTASSIUM 5.2 mmol/L (3.5-5.1); TOTAL PROTEIN, SERUM 6.3 g/dL (6.4-8.2)
[2023-04-30 06:33] LABS: CREATININE 8.2 mg/dL (0.6-1.3)
[2023-04-30] MEDS: DILTIAZEM HCL CD 180 MG CAP.SR.24H PO SCH (08:46)
[2023-04-30] MEDS: SEVELAMER CARBONATE 800 MG TABLET PO SCH ×3 (08:46→17:16)
[2023-04-30] MEDS: FOLIC ACID/VITAMIN B COMP W-C TABLET PO SCH (08:47)
[2023-04-30] MEDS: ZINC SULFATE 220 MG CAPSULE PO SCH (08:47)
[2023-04-30] MEDS: DOCUSATE SODIUM 100 MG CAPSULE PO SCH ×2 (08:47→17:22)
[2023-04-30] MEDS: FLUTICASONE/VILANTEROL 1 EACH BLST.W.DEV INH SCH (08:48)
[2023-04-30] MEDS: SODIUM BICARBONATE 650 MG TABLET PO SCH ×3 (08:48→17:21)
[2023-04-30] MEDS: CALCITRIOL 0.25 MCG CAPSULE PO SCH (08:48)
[2023-04-30] MEDS: APIXABAN 5 MG TABLET PO SCH ×2 (08:58→20:26)
[2023-04-30] MEDS: NEPRO (VANILLA) 237 ML CAN PO SCH ×2 (08:59→17:20)
[2023-04-30] MEDS: OLANZAPINE 5 MG TABLET PO SCH (20:25)
[2023-04-30] MEDS: AMMONIUM LACTATE 12% LOTION 225 GM BOTTLE TP SCH (20:29)
[2023-04-30] MEDS: ALBUTEROL SULFATE 2.5 MG/3 ML NEBU NEB PRN (21:09)
[2023-05-01] VITALS (24 sets, daily range): BP systolic 36–128; BP diastolic 14–57; TEMP 97.5–98.1; O2SAT 94
[2023-05-01] MEDS: METOPROLOL TARTRATE 50 MG TABLET PO SCH (01:00)
[2023-05-01] MEDS ORDERED: ALBUMIN HUMAN 25% 100 ML IV PRN (01:00)
[2023-05-01] MEDS ORDERED: AMIODARONE HCL 150 MG/3 ML VIAL IV ONE (04:03)
[2023-05-01] MEDS ORDERED: ENOXAPARIN SODIUM 80 MG/0.8 ML DISP.SYRIN SQ SCH (04:15)
[2023-05-01] MEDS ORDERED: ENOXAPARIN SODIUM 80 MG/0.8 ML DISP.SYRIN SQ ONE (04:40)
[2023-05-01] MEDS ORDERED: methylPREDNISolone SOD SUCC 40 MG/ML VIAL ONE ×2 (06:08→13:12)
[2023-05-01] MEDS: methylPREDNISolone SOD SUCC 40 MG/ML VIAL IV SCH ×2 (06:19→13:13)
[2023-05-01 06:25] LABS: ABG BASE EXCESS -12.1 mmol/L (-2.0-2.0); ABG HCO3 19.6 mmol/L (22.0-26.0); ABG PCO2 72.1 mmHg (35.0-48.0); ABG PH 7.052 (7.340-7.440); ABG SITE LEFT FEMORAL; ABG TOTAL HEMOGLOBIN 14.9 G/dL (14.0-18.0); AaDO2 79.7 mmHg; COHb 0.7 % (0.0-3.9); MetHb 0.4 % (0.0-1.5); O2Hb 77.6 % (94.0-97.0); VT, ABG 500 mL
[2023-05-01] MEDS ORDERED: DISP SYRIN IV ONE (06:55)
[2023-05-01] MEDS ORDERED: SODIUM BICARBONATE INFANT 5 MEQ/10 ML IV ONE (06:55)
[2023-05-01] MEDS ORDERED: SODIUM BICARBONATE 8.4% 50 MEQ/50 ML DISP.SYRIN IV ONE ×3 (06:55→13:20)
[2023-05-01] MEDS: PANTOPRAZOLE SODIUM 40 MG TABLET.DR PO SCH (07:00)
[2023-05-01] MEDS: SODIUM BICARBONATE 650 MG TABLET PO SCH ×2 (08:00→12:49)
[2023-05-01] MEDS: SEVELAMER CARBONATE 800 MG TABLET PO SCH ×2 (08:00→12:56)
[2023-05-01] MEDS ORDERED: PANTOPRAZOLE SODIUM 40 MG VIAL ONE (08:05)
[2023-05-01] MEDS ORDERED: PHENYLEPHRINE IV 50 MG in IV NORMAL SALINE 245 ML IV PRN (08:15)
[2023-05-01] MEDS ORDERED: METOPROLOL TARTRATE 50 MG TABLET PO SCH (08:15)
[2023-05-01] MEDS ORDERED: NOREPINEPHRINE BITARTRATE 32 MG in IV NORMAL SALINE 218 ML IV PRN ×2 (08:30→10:39)
[2023-05-01] MEDS: NOREPINEPHRINE BITARTRATE 8 MG in IV NORMAL SALINE 242 ML IV PRN ×3 (08:36→10:01)
[2023-05-01] MEDS: FLUTICASONE/VILANTEROL 1 EACH BLST.W.DEV INH SCH (09:00)
[2023-05-01] MEDS: CALCITRIOL 0.25 MCG CAPSULE PO SCH (09:00)
[2023-05-01] MEDS: DOCUSATE SODIUM 100 MG CAPSULE PO SCH (09:00)
[2023-05-01] MEDS: FOLIC ACID/VITAMIN B COMP W-C TABLET PO SCH (09:00)
[2023-05-01] MEDS ORDERED: DILTIAZEM HCL CD 180 MG CAP.SR.24H PO SCH (09:00)
[2023-05-01] MEDS: NEPRO (VANILLA) 237 ML CAN PO SCH (09:00)
[2023-05-01] MEDS: ZINC SULFATE 220 MG CAPSULE PO SCH (09:00)
[2023-05-01] MEDS ORDERED: DOPamine IV DRIP 800 MG/250ML 250 ML IV PRN (09:30)
[2023-05-01] MEDS ORDERED: PROPOFOL 100 ML ONE (09:36)
[2023-05-01 10:38] LABS: ABG BASE EXCESS -13.5 mmol/L (-2.0-2.0); ABG HCO3 17.2 mmol/L (22.0-26.0); ABG PCO2 60.2 mmHg (35.0-48.0); ABG PH 7.075 (7.340-7.440); ABG PO2 53.1 mmHg (75.0-100.0); ABG SITE RIGHT RADIAL; ABG TOTAL HEMOGLOBIN 15.2 G/dL (14.0-18.0); AaDO2 73.1 mmHg; MetHb 0.4 % (0.0-1.5); O2Hb 70.9 % (94.0-97.0); VT, ABG 550 mL
[2023-05-01] MEDS ORDERED: PHENYLEPHRINE IV 100 MG in IV NORMAL SALINE 240 ML IV PRN (12:15)
[2023-05-01] MEDS ORDERED: EPINEPHRINE 1:10,000 1 MG/10 ML DISP.SYRIN ONE ×2 (13:20)
[2023-05-01] MEDS ORDERED: APIXABAN 5 MG TABLET PO SCH (21:00)
== END 2023-05-01 13:37 | DRG 201 ==
LOC: ER 13:26 → UNDOADMIN 20:58 → CCUOV 20:58 → CCU 20:58 → TELE3 04-25 22:55 → MEDSURG3 04-29 09:37 → TRANSITION 05-01 02:07
PROVIDERS: ADMIT Nurse Practitioner Acute Care; ATTEND Student in an Organized Health Care Education/Training Program
PROC: 5A1D70Z Performance of Urinary Filtration, Intermittent, Less than 6 Hours Per Day (ICD-10-PCS; principal; 2023-04-24)
PROC: 05H933Z Insertion of Infusion Device into Right Brachial Vein, Percutaneous Approach (ICD-10-PCS; 2023-04-25)
PROC: 06HY33Z Insertion of Infusion Device into Lower Vein, Percutaneous Approach (ICD-10-PCS; 2023-05-01)
PROC: 5A1935Z Respiratory Ventilation, Less than 24 Consecutive Hours (ICD-10-PCS; 2023-05-01)
PROC: 0BH17EZ Insertion of Endotracheal Airway into Trachea, Via Natural or Artificial Opening (ICD-10-PCS; 2023-05-01)
PROC: 5A12012 Performance of Cardiac Output, Single, Manual (ICD-10-PCS; 2023-05-01)
DX: I48.0 Paroxysmal atrial fibrillation (principal); J96.21 Acute and chronic respiratory failure with hypoxia; R57.8 Other shock; I26.99 Other pulmonary embolism without acute cor pulmonale; E43 Unspecified severe protein-calorie malnutrition; D69.6 Thrombocytopenia, unspecified; E87.4 Mixed disorder of acid-base balance; E87.1 Hypo-osmolality and hyponatremia; I27.20 Pulmonary hypertension, unspecified; J96.22 Acute and chronic respiratory failure with hypercapnia; J18.9 Pneumonia, unspecified organism; J44.1 Chronic obstructive pulmonary disease with (acute) exacerbation; N18.6 End stage renal disease; Z99.2 Dependence on renal dialysis; E87.5 Hyperkalemia; I25.10 Atherosclerotic heart disease of native coronary artery without angina pectoris; M89.8X9 Other specified disorders of bone, unspecified site; I07.1 Rheumatic tricuspid insufficiency; E87.70 Fluid overload, unspecified; K21.9 Gastro-esophageal reflux disease without esophagitis; R73.9 Hyperglycemia, unspecified; J44.0 Chronic obstructive pulmonary disease with (acute) lower respiratory infection; Z79.01 Long term (current) use of anticoagulants; Z86.711 Personal history of pulmonary embolism; Z79.51 Long term (current) use of inhaled steroids; Z86.718 Personal history of other venous thrombosis and embolism; Z88.1 Allergy status to other antibiotic agents; I45.2 Bifascicular block
CPT/HCPCS: 36415; 36556; 36600; 71045; 82803; 83605; 83735; 84100; 84443; 84484; 85025; 85610; 90937; 93005; 93307; 94002; 94640; 94664; 99082-TC; A4606; A6209; A6213; A9150; C9113; G0378; J0171; J0282; J1650; J2920; J2930; J3490; J7040; J7050; P9047

== ENCOUNTER 2023-05-01 02:07 | Emergency (ER) | payer OTHER, MEDICARE ==
[~2023-05-01] VITALS: Ht 177.8 cm; Wt 69.4 kg
[~2023-05-01 02:07] MED LIST: ACET325T53 PO; ALBU18HF2 IH; APIX5TAB PO; CALC-494 PO; CALC0.258 PO; CHOLECALCIFEROL PO; DILT-32 PO; DOCU100C36 PO; FERR-68 PO; FLUT1DIS28 IH; HYDR-4077 PO; MIDO10TA PO; OLAN15TA3 PO; ONDA4TAB5 PO; PANT40TA2 PO; SEVE800T8 PO; SIMV10TA98 PO; SODI10PO PO; SODI650T PO; SUCR1TAB PO; VIT1TABL46 PO; ZINC220C6 PO
[2023-05-01] MEDS ORDERED: PROPOFOL 100 ML ONE (02:12)
[2023-05-01] MEDS ORDERED: NOREPINEPHRINE BITARTRATE 4 MG/4 ML VIAL IV ONE (02:17)
[2023-05-01] MEDS ORDERED: LIDOCAINE 2% (GLYDO= UROJET) 10 ML JELLY MM ONE ×2 (02:30→03:18)
[2023-05-01] MEDS ORDERED: NOREPINEPHRINE BITARTRATE 8 MG in IV NORMAL SALINE 242 ML IV PRN (02:30)
[2023-05-01] MEDS ORDERED: AMIODARONE HCL IV 150 MG in IV DEXTROSE 5% 100 ML IV ONE (02:30)
[2023-05-01] MEDS ORDERED: IV NORMAL SALINE 1000 ML BAG IV ONE (02:30)
[2023-05-01 02:55] VITALS: BP 75/17
[2023-05-01 03:13] VITALS: O2SAT 94
[2023-05-01 03:19] LABS: BASOPHILS # (AUTO) 0.1 K/UL (0.0-0.2); BASOPHILS % (AUTO) 0.3 % (0.0-2.0); EOSINOPHILS % (AUTO) 0.1 % (0.0-7.0); HEMATOCRIT 40.8 % (36.7-47.1); HEMOGLOBIN 13.2 g/dL (12.5-16.3); LYMPHOCYTES # (AUTO) 0.2 K/uL (0.8-4.8); LYMPHOCYTES % (AUTO) 0.9 % (20.5-51.5); MEAN CORPUSCULAR HEMOGLOBIN 31.1 uug (23.8-33.4); MEAN CORPUSCULAR HGB CONC 32 g/dL (32.5-36.3); MEAN CORPUSCULAR VOLUME 96.2 fL (73.0-96.2); MONOCYTES # (AUTO) 0.3 K/uL (0.1-1.30); NEUTROPHILS # (AUTO) 25.6 K/uL (1.8-8.9); NEUTROPHILS % (AUTO) 97.7 % (38.5-71.5); PLATELET COUNT (AUTO) 314 K/uL (152-348); RED BLOOD CELL COUNT(AUTO) 4.24 MIL/uL (4.06-5.63); RED CELL DISTRIBUTION WIDTH 16.2 % (12.1-16.2); WHITE BLOOD COUNT (AUTO) 26.2 K/uL (3.6-10.2)
[2023-05-01 03:27] LABS: DIFFERENTIAL COMMENT 1
[2023-05-01] MEDS ORDERED: PROPOFOL 100 ML IV PRN (03:30)
[2023-05-01 03:35] LABS: ALANINE AMINOTRANSFERASE 130 U/L (16-63); ALBUMIN 2.1 g/dL (3.4-5.0); ALKALINE PHOSPHATASE 69 U/L (50-136); ASPARTATE AMINOTRANSFERASE 101 U/L (15-37); BILIRUBIN,DIRECT 0.5 mg/dL (0.0-0.2); BILIRUBIN,TOTAL 0.9 mg/dL (0.2-1.0); CALCIUM 8.3 mg/dL (8.5-10.1); CARBON DIOXIDE 24 mmol/L (21-32); CHLORIDE 101 mmol/L (98-107); GLUCOSE 96 mg/dL (74-106); POTASSIUM 5.5 mmol/L (3.5-5.1); SODIUM SERUM 142 mmol/L (136-145); TOTAL PROTEIN, SERUM 5.6 g/dL (6.4-8.2)
[2023-05-01 03:40] LABS: ABG BASE EXCESS -6.2 mmol/L (-2.0-2.0); ABG HCO3 21.9 mmol/L (22.0-26.0); ABG PCO2 53.9 mmHg (35.0-48.0); ABG PH 7.227 (7.340-7.440); ABG PO2 63.5 mmHg (75.0-100.0); ABG SITE RIGHT RADIAL; ABG TOTAL HEMOGLOBIN 14.5 G/dL (14.0-18.0); AaDO2 87.8 mmHg; COHb 0.9 % (0.0-3.9); MetHb 0.3 % (0.0-1.5); O2Hb 85.1 % (94.0-97.0); VT, ABG 500 mL
[2023-05-01 03:43] LABS: UREA NITROGEN, BLOOD 117 mg/dL (7-18)
[2023-05-01 03:44] LABS: CREATININE 8.3 mg/dL (0.6-1.3)
[2023-05-01 03:45] LABS: NT-PRO BNP > 35000 pg/mL (0-125)
[2023-05-01 03:57] LABS: MAGNESIUM 2.4 mg/dL (1.8-2.4); PHOSPHOROUS 6.3 mg/dL (2.5-4.9)
[2023-05-01] MEDS ORDERED: SODIUM POLYSTYRENE SULFONATE 15 G/60 ML LIQUID UDC PO ONE (04:00)
== END 2023-05-01 03:54 ==
LOC: ER 02:08
DX: Z53.21 Procedure and treatment not carried out due to patient leaving prior to being seen by health care provider (principal)
CPT/HCPCS: 36415; 36556; 36600; 83735; 84100; 84484; 85025; 93005; J0282; J3490